=== PATIENT | female | born 1960 | race Two or more races ===

== ENCOUNTER 2024-05-31 17:23 | Emergency (ER) | payer MEDICAID ==
[~2024-05-31] VITALS: Ht 134.6 cm; Wt 80.6 kg
[~2024-05-31 17:23] MED LIST: TOB03OS OP
[2024-05-31 17:34] VITALS: BP 129/75; TEMP 98.1
[2024-05-31 17:36] VITALS: RESP 18; O2SAT 97
[2024-05-31 17:38] VITALS: PULSE 84
[2024-05-31 20:11] LABS: Rapid Influenza A Negative (Negative); Rapid Influenza B Negative (Negative)
[2024-05-31 20:12] LABS: COVID19 ANTIGEN SOFIA FIA NEGATIVE (NEGATIVE)
[2024-05-31] MEDS ORDERED: AZIT-43 PO (20:47)
== END 2024-05-31 21:00 | disposition home or self-care (01) ==
LOC: ER 17:36
DX: B34.9 Viral infection, unspecified (principal); R51.9 Headache, unspecified; Z20.822 Contact with and (suspected) exposure to COVID-19
CPT/HCPCS: 36415; 87426; 87804; 93005